=== PATIENT | female | born 1940 | race Caucasian/White ===

== ENCOUNTER → 2024-08-19 17:21 | Outpatient (REF) | payer OTHER, SELFPAY | LOC: WDC 17:21 | PROVIDERS: ATTENDING PHYSICIAN Obstetrics & Gynecology Gynecology; FAMILY PHYSICIAN Internal Medicine | DX: Z12.31 Encounter for screening mammogram for malignant neoplasm of breast (principal) | CPT/HCPCS: 77063; 77067 ==

== ENCOUNTER → 2024-10-09 14:44 | Outpatient (REF) | payer OTHER, SELFPAY | LOC: MRI 3T 14:44 | PROVIDERS: ATTENDING PHYSICIAN Internal Medicine | DX: F32.2 Major depressive disorder, single episode, severe without psychotic features (principal); G45.9 Transient cerebral ischemic attack, unspecified; D32.9 Benign neoplasm of meninges, unspecified | CPT/HCPCS: 70553; A9575 ==

== ENCOUNTER → 2025-09-11 14:23 | Outpatient (REF) | payer OTHER, SELFPAY | LOC: WDC 14:23 | PROVIDERS: ATTENDING PHYSICIAN Obstetrics & Gynecology Gynecology; FAMILY PHYSICIAN Internal Medicine | DX: Z12.31 Encounter for screening mammogram for malignant neoplasm of breast (principal) | CPT/HCPCS: 77063; 77067 ==